=== PATIENT | female | born 1950 | race Caucasian/White ===

== ENCOUNTER 2018-10-08 11:53 | Day surgery (SDC) | payer MEDICARE ==
[~2018-10-08] VITALS: Ht 157.5 cm; Wt 75.8 kg
[~2018-10-08 11:53] MED LIST: Anti-Diarrheal2 MG PO; CREON DR 12,001 EACH PO; LEVSOD112 PO; Lomotil Tablet1 EACH PO; MELATONIN10 MG PO; OMEPRAZOLE MAGN20 MG PO; ONDA4 PO
== END 2018-10-08 16:17 | disposition home or self-care (01) ==
LOC: ORSCSDS 11:53
PROVIDERS: Internal Medicine Gastroenterology
PROC: 0DBA8ZX Excision of Jejunum, Via Natural or Artificial Opening Endoscopic, Diagnostic (ICD-10-PCS; principal; 2018-10-08 14:15)
PROC: 0DBE8ZX Excision of Large Intestine, Via Natural or Artificial Opening Endoscopic, Diagnostic (ICD-10-PCS; principal; 2018-10-08 14:15)
PROC: 0DB68ZX Excision of Stomach, Via Natural or Artificial Opening Endoscopic, Diagnostic (ICD-10-PCS; principal; 2018-10-08 14:15)
DX: R19.7 Diarrhea, unspecified (principal); R10.9 Unspecified abdominal pain; K29.70 Gastritis, unspecified, without bleeding; Z98.84 Bariatric surgery status; K44.9 Diaphragmatic hernia without obstruction or gangrene; K57.30 Diverticulosis of large intestine without perforation or abscess without bleeding; K64.8 Other hemorrhoids; E03.9 Hypothyroidism, unspecified; Z86.19 Personal history of other infectious and parasitic diseases; Z79.899 Other long term (current) drug therapy
CPT/HCPCS: 88305; 88342; J2250; J2704; J7120